=== PATIENT | female | born 1945 | race Caucasian/White ===

== ENCOUNTER 2021-04-08 03:40 | Inpatient (IN) ==
[2021-04-08] MEDS ORDERED: Acetaminophen 325 MG TABLET PO PRN (05:44)
[2021-04-08] MEDS ORDERED: Ondansetron 4 MG/2 ML VIAL IVP PRN (05:44)
[2021-04-08] MEDS ORDERED: Naloxone 0.4 MG/ML INJ IVP PRN (05:44)
[2021-04-08] MEDS ORDERED: 0.9 % Sodium Chloride 1,000 ML IVC SCH (05:45)
[2021-04-08] MEDS ORDERED: Perflutren Lipid Microsphere 1.3 ML in 0.9 % Sodium Chloride 8.7 ML IVP PRN (06:00)
[2021-04-08 06:29] LABS: Hematocrit 36.9 % (35.3-44.9); Hemoglobin 11.6 g/dL (11.5-15.4); Mean Corpuscular HGB Conc 31.4 g/dL (31.6-35.5); Mean Corpuscular Hemoglobin 28.9 pg (28.0-33.3); Mean Corpuscular Volume 91.8 fL (83.0-100.0); Mean Platelet Volume 9.7 fL (9.4-12.4); Platelet Count 247 K/mcL (140-400); Red Blood Count 4.02 M/mcL (3.82-4.97); Red Cell Distribution Width 15.2 % (11.5-14.5); White Blood Count 26.4 K/mcL (4.3-11.1)
[2021-04-08 06:37] LABS: Albumin 3.6 g/dL (3.5-5.7); Albumin/Globulin Ratio 1.2 (1.1-2.2); Bilirubin,Total 0.5 mg/dL (0.3-1.0); Calcium 9.1 mg/dL (8.6-10.3); Potassium 5.1 mEq/L (3.5-5.1); Total Protein 6.6 g/dL (6.4-8.9)
[2021-04-08 06:47] LABS: INR 1.4
[2021-04-08 06:49] LABS: Activated Partial Thrombo Time 36.8 Seconds (26.0-36.0)
[2021-04-08 07:18] LABS: Lymphocytes # 2.6 K/mcL (0.6-4.6); Monocytes # 0.8 K/mcL (0.0-1.3); Platelet Estimate Normal (Normal)
[2021-04-08] MEDS: cefTRIAXone 1,000 MG in Water for inj. (sterile) 10 ML IVP SCH ×2 (07:27→08:09)
[2021-04-08] MEDS ORDERED: Ertapenem 1,000 MG in 0.9 % Sodium Chloride Mini Bag 100 ML IVPB SCH (11:00)
[2021-04-08 14:58] LABS: Calcium 8.6 mg/dL (8.6-10.3); Potassium 5.6 mEq/L (3.5-5.1)
[2021-04-08 22:30] LABS: Bilirubin,Urine Negative (Negative); Blood,Urine Small (Negative); Clarity,Urine Turbid (Clear); Color,Urine Yellow (Yellow); Glucose,Urine (UA) Normal (Normal); Ketones,Urine Negative (Negative); Leukocyte Esterase,Urine Large (Negative); Nitrite,Urine Negative (Negative); Protein,Urine 100 mg/dL (Neg-Trace); Specific Gravity,Urine 1.015 (1.010-1.025); Urobilinogen,Urine Normal (Normal)
[2021-04-09 00:42] LABS: Basophils # 0.1 K/mcL (0.0-0.2); Basophils % 0.3 %; Eosinophils # 0.1 K/mcL (0.0-0.6); Eosinophils % 0.3 %; Hematocrit 35.7 % (35.3-44.9); Hemoglobin 11.1 g/dL (11.5-15.4); Immature Granulocytes % 0.5 % (0-4); Lymphocytes # 1.6 K/mcL (0.6-4.6); Lymphocytes % 8.3 %; Mean Corpuscular HGB Conc 31.1 g/dL (31.6-35.5); Mean Corpuscular Hemoglobin 28.2 pg (28.0-33.3); Mean Corpuscular Volume 90.8 fL (83.0-100.0); Mean Platelet Volume 9.8 fL (9.4-12.4); Monocytes % 5.1 %; Neutrophils # 16.5 K/mcL (1.6-8.9); Platelet Count 223 K/mcL (140-400); Red Blood Count 3.93 M/mcL (3.82-4.97); Red Cell Distribution Width 15.2 % (11.5-14.5); Segmented Neutrophils % 85.5 %; White Blood Count 19.3 K/mcL (4.3-11.1)
[2021-04-09 00:59] LABS: Calcium 8.9 mg/dL (8.6-10.3); Potassium 4.8 mEq/L (3.5-5.1)
[2021-04-09] MEDS ORDERED: Ondansetron 4 MG/2 ML VIAL IVP PRN ×2 (11:48→14:51)
[2021-04-09] MEDS ORDERED: *HR* FentaNYL (PF) 100 MCG/2 ML VIAL IVP PRN (11:48)
[2021-04-09] MEDS ORDERED: Nitroglycerin 0.4 MG TAB.SUBL SL PRN (11:49)
[2021-04-09] MEDS ORDERED: Albuterol 2.5 MG/3 ML NEBULIZER IH PRN (11:49)
[2021-04-09] MEDS ORDERED: Isovue-300 50ML VIAL ONE (12:18)
[2021-04-09] MEDS ORDERED: *HR* FentaNYL (PF) 100 MCG/2 ML VIAL ONE (12:28)
[2021-04-09] MEDS ORDERED: *HR* Propofol 200 MG/20 ML VIAL IVP ONE (12:29)
[2021-04-09] MEDS ORDERED: Lidocaine -MPF 2% 5 ML VIAL ONE (12:30)
[2021-04-09] MEDS ORDERED: Ondansetron 4 MG/2 ML VIAL ONE ×2 (12:30→13:28)
[2021-04-09] MEDS ORDERED: Lidocaine -MPF 4% 5 ML AMPUL ONE (12:30)
[2021-04-09] MEDS ORDERED: *HR* Rocuronium Bromide 50 MG/5 ML VIAL ONE (12:31)
[2021-04-09] MEDS ORDERED: Perflutren Lipid Microsphere 1.3 ML in 0.9 % Sodium Chloride 8.7 ML IVP PRN (14:51)
[2021-04-09] MEDS ORDERED: Naloxone 0.4 MG/ML INJ IVP PRN (14:51)
[2021-04-10 01:54] LABS: Basophils % 0.2 %; Eosinophils % 0.1 %; Hematocrit 35.2 % (35.3-44.9); Hemoglobin 11.1 g/dL (11.5-15.4); Immature Granulocytes % 0.7 % (0-4); Lymphocytes # 1.3 K/mcL (0.6-4.6); Lymphocytes % 8.8 %; Mean Corpuscular HGB Conc 31.5 g/dL (31.6-35.5); Mean Corpuscular Hemoglobin 28.6 pg (28.0-33.3); Mean Corpuscular Volume 90.7 fL (83.0-100.0); Mean Platelet Volume 10.2 fL (9.4-12.4); Monocytes # 0.5 K/mcL (0.0-1.3); Monocytes % 3.2 %; Neutrophils # 12.6 K/mcL (1.6-8.9); Platelet Count 256 K/mcL (140-400); Red Blood Count 3.88 M/mcL (3.82-4.97); Red Cell Distribution Width 15.1 % (11.5-14.5); White Blood Count 14.5 K/mcL (4.3-11.1)
[2021-04-10] MEDS: Acetaminophen 325 MG TABLET PO PRN (17:26)
[2021-04-10] MEDS: Carbidopa/Levodopa 25/100 TABLET PO SCH (20:28)
[2021-04-10] MEDS: Carbidopa/Levodopa ER 50/200 TABLET PO SCH (20:28)
[2021-04-11 03:34] LABS: Hematocrit 35.9 % (35.3-44.9); Hemoglobin 11.1 g/dL (11.5-15.4); Mean Corpuscular HGB Conc 30.9 g/dL (31.6-35.5); Mean Corpuscular Hemoglobin 28.5 pg (28.0-33.3); Mean Corpuscular Volume 92.3 fL (83.0-100.0); Platelet Count 302 K/mcL (140-400); Red Blood Count 3.89 M/mcL (3.82-4.97); Red Cell Distribution Width 15.1 % (11.5-14.5); White Blood Count 14.4 K/mcL (4.3-11.1)
[2021-04-11 03:50] LABS: Calcium 8.9 mg/dL (8.6-10.3); Potassium 4.7 mEq/L (3.5-5.1)
[2021-04-11] MEDS: amLODIPine 5 MG TABLET PO SCH (09:17)
[2021-04-11] MEDS: Carbidopa/Levodopa ER 50/200 TABLET PO SCH ×2 (09:17→20:03)
[2021-04-11] MEDS: Carbidopa/Levodopa 25/100 TABLET PO SCH ×2 (09:17→20:03)
[2021-04-11] MEDS: rOPINIRole 0.25 MG TABLET PO SCH (09:17)
[2021-04-11] MEDS ORDERED: 0.9 % Sodium Chloride 1,000 ML IVC SCH (11:15)
[2021-04-11] MEDS: Acetaminophen 325 MG TABLET PO PRN (20:06)
[2021-04-12] MEDS: amLODIPine 5 MG TABLET PO SCH (08:12)
[2021-04-12] MEDS: Carbidopa/Levodopa ER 50/200 TABLET PO SCH ×2 (08:12→20:14)
[2021-04-12] MEDS: rOPINIRole 0.25 MG TABLET PO SCH (08:12)
[2021-04-12] MEDS: Carbidopa/Levodopa 25/100 TABLET PO SCH ×2 (08:12→20:14)
[2021-04-12 08:26] LABS: Hematocrit 37.1 % (35.3-44.9); Hemoglobin 11.8 g/dL (11.5-15.4); Mean Corpuscular HGB Conc 31.8 g/dL (31.6-35.5); Mean Corpuscular Hemoglobin 29.1 pg (28.0-33.3); Mean Corpuscular Volume 91.6 fL (83.0-100.0); Mean Platelet Volume 9.3 fL (9.4-12.4); Platelet Count 291 K/mcL (140-400); Red Blood Count 4.05 M/mcL (3.82-4.97); Red Cell Distribution Width 14.6 % (11.5-14.5); White Blood Count 10.7 K/mcL (4.3-11.1)
[2021-04-12 08:45] LABS: Calcium 8.5 mg/dL (8.6-10.3); Potassium 4.4 mEq/L (3.5-5.1)
[2021-04-13 06:01] LABS: Basophils # 0.1 K/mcL (0.0-0.2); Basophils % 0.7 %; Eosinophils # 0.6 K/mcL (0.0-0.6); Eosinophils % 5.7 %; Hematocrit 37.9 % (35.3-44.9); Lymphocytes # 3.2 K/mcL (0.6-4.6); Lymphocytes % 28.4 %; Mean Corpuscular HGB Conc 31.7 g/dL (31.6-35.5); Mean Corpuscular Hemoglobin 28.4 pg (28.0-33.3); Mean Corpuscular Volume 89.6 fL (83.0-100.0); Mean Platelet Volume 9.3 fL (9.4-12.4); Monocytes # 0.8 K/mcL (0.0-1.3); Monocytes % 7.3 %; Neutrophils # 6.5 K/mcL (1.6-8.9); Platelet Count 317 K/mcL (140-400); Red Blood Count 4.23 M/mcL (3.82-4.97); Red Cell Distribution Width 14.6 % (11.5-14.5); Segmented Neutrophils % 56.9 %; White Blood Count 11.3 K/mcL (4.3-11.1)
[2021-04-13 06:24] LABS: Calcium 8.9 mg/dL (8.6-10.3); Potassium 4.1 mEq/L (3.5-5.1)
[2021-04-13] MEDS: Carbidopa/Levodopa ER 50/200 TABLET PO SCH ×2 (08:00→19:32)
[2021-04-13] MEDS: amLODIPine 5 MG TABLET PO SCH (08:00)
[2021-04-13] MEDS: rOPINIRole 0.25 MG TABLET PO SCH (08:00)
[2021-04-13] MEDS: Carbidopa/Levodopa 25/100 TABLET PO SCH ×2 (08:00→19:32)
[2021-04-13] MEDS: Acetaminophen 325 MG TABLET PO PRN ×2 (08:04→23:02)
[2021-04-14] MEDS: amLODIPine 5 MG TABLET PO SCH (08:33)
[2021-04-14] MEDS: Carbidopa/Levodopa ER 50/200 TABLET PO SCH (08:33)
[2021-04-14] MEDS: Acetaminophen 325 MG TABLET PO PRN ×2 (08:34→20:31)
[2021-04-14] MEDS: rOPINIRole 0.25 MG TABLET PO SCH (08:34)
[2021-04-14] MEDS: Carbidopa/Levodopa 25/100 TABLET PO SCH (08:34)
[2021-04-14] MEDS ORDERED: Ertapenem 1,000 MG in 0.9 % Sodium Chloride Mini Bag 100 ML IVPB SCH (09:00)
[2021-04-14 14:49] VITALS: BP 130/69; PULSE 82; TEMP 98; O2SAT 94
== END 2021-04-14 21:05 | disposition home health service (06) | DRG 659 ==
LOC: 3ANU → SUATTDRO 05:12
PROVIDERS: ADMIT Internal Medicine; ATTEND Internal Medicine